=== PATIENT | male | born 1950 | race Caucasian/White ===

== ENCOUNTER 2022-11-25 19:18 | Emergency (ER) | payer MEDICARE ==
[2022-11-25] MEDS ORDERED: Sodium Chloride 0.9% 10 ML Syringe FLUSH PRN (19:43)
[2022-11-25 20:01] LABS: BASOPHILS ABSOLUTE AUTO 0.04 K/uL (0.00-0.10); BASOPHILS PERCENT AUTO 0.5 % (0.1-1.3); EOSINOPHILS PERCENT AUTO 3.8 % (0.0-5.4); HEMATOCRIT 42.6 % (38.4-49.7); HEMOGLOBIN 14.6 g/dL (12.9-16.9); IMMATURE GRAN PERCENT AUTO 0.3 % (0.0-0.7); LYMPHOCYTES ABSOLUTE AUTO 1.93 K/uL (0.8-3.3); LYMPHOCYTES PERCENT AUTO 24.3 % (11.4-47.7); MEAN CORPUSCULAR HEMOGLOBIN 32.2 pg (31.6-35.5); MEAN CORPUSCULAR HGB CONC 34.3 g/dL (31.6-35.5); MEAN CORPUSCULAR VOLUME 93.8 fL (81.4-99.0); MONOCYTES ABSOLUTE AUTO 0.84 K/uL (0.20-0.90); MONOCYTES PERCENT AUTO 10.6 % (3.3-12.6); NEUTROPHILS ABSOLUTE AUTO 4.81 K/uL (1.0-7.6); NEUTROPHILS PERCENT AUTO 60.5 % (40.0-78.1); PLATELET COUNT,PLT 198 K/uL (130-375); RED BLOOD CELL COUNT 4.54 M/uL (4.14-5.76); WHITE BLOOD CELL COUNT,WBC 7.9 K/uL (3.2-11.0)
[2022-11-25 20:02] LABS: IMMATURE GRAN ABSOLUTE AUTO 0.02 K/uL (0.00-0.23)
[2022-11-25 20:21] LABS: PROTHROMBIN TIME 9.9 sec (9.2-10.6); PTT,PARTIAL THROMBOPLSTIN TIME 24.7 sec (21.8-27.3)
[2022-11-25 20:24] LABS: ANION GAP 4.1 mmol/L (5.0-14.0); CALCIUM 9.1 mg/dL (8.5-10.1); CREATININE 1.5 mg/dL (0.8-1.3); EST CRCL DRUG DOSING (CG) 47.31 mL/min; POTASSIUM,K 4.1 mmol/L (3.6-5.2); TROPONIN I HIGH SENSITIVITY 14.9 pg/mL (<=60.3)
[2022-11-25] MEDS ORDERED: Sodium Chloride 0.9% 100 ML IV SCH (20:30)
[2022-11-25] MEDS ORDERED: Iopamidol 755 Mg/ML 100 ML Bottle IV SCH (20:30)
[2022-11-25] MEDS ORDERED: Sodium Chloride 0.9% 1,000 ML IV ONE (20:35)
== END 2022-11-25 22:42 | disposition home or self-care (01) ==
LOC: JP.ED 19:18
DX: H54.62 Unqualified visual loss, left eye, normal vision right eye (principal); I77.3 Arterial fibromuscular dysplasia; R74.8 Abnormal levels of other serum enzymes; R42 Dizziness and giddiness; E03.9 Hypothyroidism, unspecified; Z79.899 Other long term (current) drug therapy; Z79.82 Long term (current) use of aspirin
CPT/HCPCS: 36415; 70450; 70496; 70498; 80048; 82947; 84484; 85025; 85610; 85730; 93005; 96360; 99284; J3490; J7030; Q9967